=== PATIENT | female | born 1960 | race Caucasian/White ===

== ENCOUNTER 2020-11-06 14:03 | Emergency (ER) | payer OTHER ==
[~2020-11-06] VITALS: Ht 165.1 cm; Wt 63.5 kg
[2020-11-06 14:09] VITALS: BP 107/72
--- NOTE | 2020-11-06 14:15 | NUR ---
PT SENT TO ER LOBBY TO WAIT FOR AVAILABLE BED.
--- NOTE | 2020-11-06 15:03 | NUR ---
PT TAKEN TO BED 12.
[2020-11-06] MEDS ORDERED: ONDANSETRON 4 MG ODT PO ONE (15:25)
[2020-11-06] MEDS ORDERED: KETOROLAC 30 MG/ML VIAL IM ONE (15:25)
[2020-11-06] MEDS ORDERED: MECLIZINE 25 MG TAB PO ONE (15:25)
--- NOTE | 2020-11-06 15:28 | NUR ---
60 YO FEMALE WITH C/O WHISTLING IN RIGHT EAR X2 HOURS. HEADACHE 4/10 AND INT EPISODES OF NAUSEA. DENIES V/D, DENIES FEVER, CHILLS, CHEST PAIN AND SOB. A&OX4, RR EVEN AND UNLABORED. MEDHX: THYROID ALLERGIES: DENIES
[2020-11-06] MEDS ORDERED: LIDO15SO PO (15:42)
[2020-11-06] MEDS ORDERED: PRED20TA5 PO (15:42)
[2020-11-06] MEDS ORDERED: ONDA4TAB PO (15:42)
[2020-11-06] MEDS ORDERED: MECL-303 PO (15:42)
--- NOTE | 2020-11-06 16:11 | NUR ---
Patient discharged with v/s stable. Written and verbal after care instructions given and explained. Patient alert, oriented and verbalized understanding of instructions. Ambulatory with steady gait. All questions addressed prior to discharge. ID band removed. Patient advised to follow up with PMD. Rx of LIDOCAINE, ANTIVERT, ZOFRAN, DELTASONE given. Patient educated on indication of medication including possible reaction and side effects. Opportunity to ask questions provided and answered.
== END 2020-11-06 16:11 | disposition home or self-care (01) ==
LOC: MED 14:03
DX: H69.83 Other specified disorders of Eustachian tube, bilateral (principal); K12.0 Recurrent oral aphthae; R11.0 Nausea; R42 Dizziness and giddiness; E07.9 Disorder of thyroid, unspecified; Z79.899 Other long term (current) drug therapy
CPT/HCPCS: 96372; 99283; J1885; J8597; Q0162